=== PATIENT | female | born 1955 | race Caucasian/White ===

== ENCOUNTER 2018-11-23 15:36 | Emergency (ER) | payer MEDICAID ==
[~2018-11-23] VITALS: Ht 152.4 cm; Wt 65.9 kg
[2018-11-23 15:40] VITALS: BP 104/70
[2018-11-23] MEDS ORDERED: ATOR40TA PO (16:22)
[2018-11-23] MEDS ORDERED: CYAN100014 PO (16:23)
[2018-11-23] MEDS ORDERED: KETOROLAC 30 MG/1 ML ONE (16:26)
--- NOTE | 2018-11-23 16:30 | NUR ---
to radiology (2nd trip for wrist/elbow)
--- NOTE | 2018-11-23 16:51 | NUR ---
medicated per emar for left shoulder pain at 12/28/ice packs applied/ knee abrasion cleansed and dressed with bacitracin dressing
[2018-11-23] MEDS ORDERED: KETOROLAC 30 MG/1 ML IM ONE (17:00)
[2018-11-23] MEDS ORDERED: HYDROcodone/APAP 5/325 TABLET ONE (17:23)
[2018-11-23] MEDS ORDERED: HYDROcodone/APAP 5/325 TABLET PO ONE (17:30)
--- NOTE | 2018-11-23 17:34 | NUR ---
Rail Filler comfortable sending patient home despite recent narcotic administration-as patient not naive to narcotics and in the company of friend dennis applied by emt-cms intact
== END 2018-11-23 17:40 | disposition home or self-care (01) ==
LOC: ED 17:34
DX: S42.255A Nondisplaced fracture of greater tuberosity of left humerus, initial encounter for closed fracture (principal); V11.4XXA Pedal cycle driver injured in collision with other pedal cycle in traffic accident, initial encounter; Y93.89 Activity, other specified; Y92.410 Unspecified street and highway as the place of occurrence of the external cause; Y99.8 Other external cause status
CPT/HCPCS: 29105; 70450; 73030; 73060; 73080; 96372; 99284; J1885